=== PATIENT | female | born 1970 | race Caucasian/White ===

== ENCOUNTER 2016-10-20 22:10 | Emergency (ER) | payer OTHER ==
[2016-10-21 03:44] LABS: APPEARANCE,URINE CLEAR; BILIRUBIN,URINE NEGATIVE (NEGATIVE); GLUCOSE, URINE NEGATIVE (NEGATIVE); KETONES,URINE NEGATIVE (NEGATIVE); LEUKOCYTE ESTERASE,URINE SMALL (NEGATIVE); NITRITE,URINE NEGATIVE (NEGATIVE); PROTEIN,URINE NEGATIVE (NEGATIVE); URINE SPECIFIC GRAVITY 1.003; UROBILINOGEN,URINE NEGATIVE mg/dL (<2.0)
[2016-10-21] MEDS ORDERED: CEPHALEXIN 500 MG CAPSULE PO ONE (04:55)
[2016-10-21] MEDS ORDERED: PHENAZOPYRIDINE HCL 200 MG TABLET PO ONE (04:55)
--- NOTE | 2016-10-21 04:58 | ER Document Report ---
HPI - HPI Patient complains to provider of: urinary frequency, burning with urination Pain Level: 4 Context: Patient is a 46-year-old female that comes emergency department for chief complaint of new onset today of painful urination, burning with urination, and urinary frequency. Patient states that since she arrived to the emergency department and after she gave sample she started having mild discomfort in her bladder area and she noticed blood in her urine. She states she gets about 4 urinary tract infections a year. She denies vaginal discharge or bleeding. She denies fever, nausea or vomiting, flank pain. She denies any daily medications. - URINARY Urinary: REPORTS: Dysuria, Urgency, Frequency - MUSCULOSKELETAL Musculoskeletal: DENIES: Extremity pain, Back Pain, Neck Pain, Swelling - DERM Skin Color: Normal Skin Problems: None Past Medical History - General Information source: Patient - Social History Smoking Status: Never Smoker Drug Abuse: None Lives with: Spouse/Significant other Family History: Reviewed & Not Pertinent - Medical History Medical History: Negative Renal/ Medical History: Denies: Hx Peritoneal Dialysis Past Surgical History: Reports: Hx Hysterectomy - Immunizations Immunizations up to date: Yes Hx Diphtheria, Pertussis, Tetanus Vaccination: Yes Vertical Provider Document - CONSTITUTIONAL General Appearance: WD/WN, No Apparent Distress - INFECTION CONTROL TRAVEL OUTSIDE OF THE [place] IN LAST 30 DAYS: No - HEENT HEENT: Atraumatic, Normocephalic - NECK Neck: Normal Inspection - RESPIRATORY Respiratory: Breath Sounds Normal, No Respiratory Distress - CARDIOVASCULAR Cardiovascular: Regular Rate, Regular Rhythm - GI/ABDOMEN Gastrointestinal: Abdomen Soft. negative: Abdomen Non-Tender - Very mild suprapubic tenderness, otherwise unremarkable Course - Laboratory Laboratory results interpreted by me: 10/20/16 22:15 Urine Blood MODERATE H Ur Leukocyte Esterase SMALL H Discharge - Discharge Clinical Impression: Dysuria Condition: Stable Disposition: HOME, SELF-CARE Additional Instructions: Take the Keflex antibiotic as directed for the urinary tract infection. Follow-up with primary care for additional management. Return to the emergency department for any concerning or worsening symptoms including vomiting, abdominal or flank pain, fever, etc. Prescriptions: Cephalexin Monohydrate [Keflex 500 mg Capsule] 500 mg PO BID #10 capsule
[2016-10-21 05:34] VITALS: BP 122/88
== END 2016-10-21 05:33 | disposition home or self-care (01) ==
LOC: ER 22:10
DX: R30.0 Dysuria (principal); R35.0 Frequency of micturition
CPT/HCPCS: 99283; 81025; 81001; J3490

== ENCOUNTER 2017-09-20 20:23 | Emergency (ER) | payer OTHER ==
[2017-09-20 20:41] VITALS: BP 118/74
[2017-09-20] MEDS ORDERED: ACETAMINOPHEN 325 MG TABLET PO ONE (21:05)
--- NOTE | 2017-09-20 21:26 | RADIOLOGY REPORT (SQ) ---
EXAM DESCRIPTION: FOOT RIGHT COMPLETE COMPLETED DATE/TIME: 09/20/2017 9:00 pm REASON FOR STUDY: injury/swelling COMPARISON: None. NUMBER OF VIEWS: Three views. TECHNIQUE: AP, lateral and oblique radiographic images acquired of the right foot. LIMITATIONS: None. FINDINGS: MINERALIZATION: Normal. BONES: There is a fracture of the distal diaphysis of the 5th proximal phalanx with angulation. JOINTS: No effusions. SOFT TISSUES: No soft tissue swelling. No foreign body. OTHER: No other significant finding. IMPRESSION: Fracture of the 5th proximal phalanx. TECHNICAL DOCUMENTATION: JOB ID: [id number] [employer]- All Rights Reserved Reading location - IP/workstation name: [email or web address]
[2017-09-20] MEDS ORDERED: OXYCODONE HCL IR 5 MG TABLET PO ONE (21:52)
--- NOTE | 2017-09-20 21:58 | ER Document Report ---
ED Extremity Problem, Lower - General Chief Complaint: Toe Injury Stated Complaint: TOE INJURY Time Seen by Provider: 09/20/17 21:12 Mode of Arrival: Ambulatory Information source: Patient TRAVEL OUTSIDE OF THE [place] IN LAST 30 DAYS: No - HPI Patient complains to provider of: Injury Location: 5th Toe Occurred: Just prior to arrival Where: Home Notes: Patient is here with complaints of right fifth toe injury. She was walking when she excellently stubbed her toe on a coffee table. She states that the toe is now planing laterally. She denies any other injuries. Pain is worse with movement or walking. Better with rest and staying off of it. No redness or fever. No nausea, vomiting, diarrhea. No numbness, tingling, weakness. No other complaints. - Related Data Allergies/Adverse Reactions: No Known Allergies Allergy (Unverified 10/21/16 03:57) Past Medical History - Social History Smoking Status: Unknown if Ever Smoked Family History: Reviewed & Not Pertinent Patient has suicidal ideation: No Patient has homicidal ideation: No Renal/ Medical History: Denies: Hx Peritoneal Dialysis Past Surgical History: Reports: Hx Hysterectomy - Immunizations Immunizations up to date: Yes Hx Diphtheria, Pertussis, Tetanus Vaccination: Yes Review of Systems - Review of Systems -: Yes All other systems reviewed and negative Physical Exam - Vital signs Vitals: Temp Pulse Resp BP Pulse Ox 98.0 F 77 18 118/74 97 09/20/17 20:40 09/20/17 20:40 09/20/17 20:40 09/20/17 20:40 09/20/17 20:40 - Notes Notes: GENERAL: alert, cooperative, nontoxic, no distress. HEAD: normocephalic, atraumatic EYES: conjunctiva pink without discharge, no external redness or swelling. EARS: no external swelling, no external redness NOSE: atraumatic, no external swelling MOUTH/THROAT: mucous membranes moist and pink NECK: soft, supple, full range of motion, no meningismus. CHEST: no distress, lungs clear and equal throughout. No wheezing, rales, rhonchi. CARDIAC: regular rate and rhythm, no murmur, normal capillary refill, normal pulses. BACK: full range of motion, no CVA tenderness. EXTREMITIES: Obvious lateral deformity of the right fifth toe. No redness. Skin is intact. Normal cap refill and sensation distally. Limited range of motion. NEURO: alert and oriented 3, no focal deficits, full range of motion of all extremities. PYSCH: appropriate mood, affect. Patient is cooperative. SKIN: pink, warm, dry, no rash. Course - Re-evaluation Re-evalutation: 09/20/17 22:28 Patient is nontoxic appearing with stable vitals. The patient stubbed her right fifth toe on a coffee table and had an obvious deformity. X-ray shows a fracture of the proximal phalanx. Was able to reduce this and colleen tape the toe together. Repeat x-ray shows successful reduction. The patient will be placed in a postop shoe and given crutches. I will write her a prescription for [place] to take as needed for pain. Follow-up with orthopedics at the next available appointment to determine if any further interventions are required. Follow-up sooner for increasing pain, fever, redness, numbness, tingling, weakness, any further concerns. The patient's emergency department workup and current diagnosis were explained to the patient and or family. Follow-up instructions were provided. Medications if prescribed were discussed. Instructions for when to return to the emergency department including specific worrisome symptoms were discussed with the patient and/or family. - Vital Signs Vital signs: Temp Pulse Resp BP Pulse Ox 98.0 F 77 18 118/74 97 09/20/17 20:40 09/20/17 20:40 09/20/17 20:40 09/20/17 20:40 09/20/17 20:40 - Diagnostic Test Radiology reviewed: Image reviewed, Reports reviewed - Fracture of the fifth proximal phalanx Procedures - Immobilization Right foot Pre-Proc Neuro Vasc Exam: Normal Immobilizer type: Post-op shoe Performed by: RN Post-Proc Neuro Vasc Exam: Normal Alignment checked and good: Yes - Joint Reduction/Fracture Care Right fifth toe Consent obtained: Yes Pre-procedure NV exam: Yes Fracture: Closed Manipulation comment: Toe was pulled out and into appropriate position. Gauze was placed between Post-procedure NV exam: Yes Post-reduction x-ray: Joint reduced Reduction attempts: 1 Discharge - Discharge Clinical Impression: Fracture of fifth toe, right, closed Qualifiers: Encounter type: initial encounter Qualified Code(s): S92.501A - Displaced unspecified fracture of right lesser toe(s), initial encounter for closed fracture Condition: Stable Disposition: HOME, SELF-CARE Instructions: Colleen Taping (toes) ([facility]), Fractured Toe ([facility]) Additional Instructions: Take medications as prescribed. Keep your toe colleen taped at all times. Wear postop shoe and use crutches as needed. Rest, ice, elevate. Follow-up with orthopedics at the next available appointment. Follow-up sooner for increasing pain, fever, redness, numbness, tingling, weakness, any further concerns. The medication you were prescribed today may cause drowsiness. Do not drive or operate heavy machinery while taking this medication. Prescriptions: Hydrocodone/Acetaminophen [[place] 5-325 mg Tablet] 2 tab PO Q6H PRN #15 tab PRN Reason: Forms: Smoking Cessation Education Referrals: SABINE KOLB PA [Primary Care Provider] - Follow up as needed WYATT HERR DO [ACTIVE STAFF] - Follow up as needed
--- NOTE | 2017-09-20 22:21 | RADIOLOGY REPORT (SQ) ---
EXAM DESCRIPTION: TOE RIGHT COMPLETED DATE/TIME: 09/20/2017 10:11 pm REASON FOR STUDY: post reduction COMPARISON: 09/20/2017 NUMBER OF VIEWS: Three views. TECHNIQUE: AP and lateral images acquired of the right fifth toe. LIMITATIONS: None. FINDINGS: MINERALIZATION: Normal. BONES: Once again there is a fracture of the distal diaphysis of the 5th proximal phalanx. The align ment appears to be satisfactory at this time. JOINTS: No effusions. SOFT TISSUES: No soft tissue swelling. No foreign body. OTHER: No other significant finding. IMPRESSION: Successful reduction. COMMENT: SITE OF TRAUMA/COMPLAINT MARKED/STAMP COMPLETED: YES. TECHNICAL DOCUMENTATION: JOB ID: [id number] [employer]- All Rights Reserved Reading location - IP/workstation name: [email or web address]
== END 2017-09-20 22:53 | disposition home or self-care (01) ==
LOC: ER 20:23
PROC: 0QSQXZZ Reposition Right Toe Phalanx, External Approach (ICD-10-PCS; principal; 2017-09-20)
DX: S92.511A Displaced fracture of proximal phalanx of right lesser toe(s), initial encounter for closed fracture (principal); W22.03XA Walked into furniture, initial encounter; Y92.009 Unspecified place in unspecified non-institutional (private) residence as the place of occurrence of the external cause; Z90.710 Acquired absence of both cervix and uterus
CPT/HCPCS: 99283

== ENCOUNTER 2020-05-31 16:30 | Emergency (ER) | payer OTHER ==
[2020-05-31] MEDS ORDERED: ONDANSETRON HCL INJ/PF 4 MG/2 ML SDV IV ONE (17:10)
[2020-05-31] MEDS ORDERED: NORMAL SALINE 1000 ML 1,000 ML IV ONE (17:10)
[2020-05-31] MEDS ORDERED: DIPHENHYDRAMINE HCL 50 MG/ML VIAL IV ONE (17:10)
--- NOTE | 2020-05-31 17:11 | ER Document Report ---
ED GI/ - General Chief Complaint: Vomiting Stated Complaint: NAUSEA,VOMITING,FEVER,HEADACHE Time Seen by Provider: 05/31/20 16:58 Notes: Patient is a 50-year-old female no past medical history presents the emergency department with nausea, vomiting, and diarrhea, and headache. 4 days ago, the patient tested positive for COVID-19. She had a slight cough then, but has not had a cough since. Patient states that she does not feel well. TRAVEL OUTSIDE OF THE [place] IN LAST 30 DAYS: No - Related Data Allergies/Adverse Reactions: No Known Allergies Allergy (Verified 05/31/20 18:09) Past Medical History - General Information source: Patient - Social History Smoking Status: Unknown if Ever Smoked Family History: Reviewed & Not Pertinent Renal/ Medical History: Denies: Hx Peritoneal Dialysis Past Surgical History: Reports: Hx Hysterectomy - Immunizations Immunizations up to date: Yes Hx Diphtheria, Pertussis, Tetanus Vaccination: Yes Review of Systems - Review of Systems Notes: REVIEW OF SYSTEMS: CONSTITUTIONAL : Denies recent illness. Denies recent unintentional weight loss. Denies fever, chills, or sweats. EENT: Denies eye, ear, throat, or mouth pain, discharge, or symptoms. Denies nasal or sinus congestion. CARDIOVASCULAR: Denies chest pain. RESPIRATORY: See HPI. GASTROINTESTINAL: See HPI. GENITOURINARY: Denies difficulty urinating, burning, blood in urine, urgency or frequency. MUSCULOSKELETAL: Denies neck and back pain. Denies joint pain or swelling. SKIN: Denies rash, itchiness, or lesions HEMATOLOGIC : Denies easy bruising or bleeding. LYMPHATIC: Denies swollen, painful, enlarged glands. NEUROLOGICAL: Denies no numbness or tingling denies weakness. Denies headache. Denies altered mental status. Denies alteration in speech. PSYCHIATRIC: Denies stress, anxiety, alteration in sleep patterns, or depression. All other systems reviewed and negative. Physical Exam - Vital signs Vitals: Temp Pulse Resp BP Pulse Ox 98.5 F 87 20 123/92 H 98 05/31/20 16:56 05/31/20 16:56 05/31/20 16:56 05/31/20 16:56 05/31/20 16:56 - Notes Notes: PHYSICAL EXAMINATION: GENERAL: Appears well, healthy, well-nourished, no acute distress. HEAD: Normocephalic, atraumatic. EYES: PERRL, conjunctiva normal, all extraocular movements intact, sclera nonicteric ENT: Moist mucous membranes. NECK: Supple, no noticeable swelling, redness, rash. Normal range of motion. LUNGS: Equal breath sounds bilaterally and clear to auscultation. No wheezes rales or rhonchi. CARDIOVASCULAR: S1-S2, regular rate, regular rhythm. Radial pulses 2+, normal. ABDOMEN: Normoactive bowel sounds. Soft, nontender, no guarding, no rebound tenderness, and no masses palpated. EXTREMITIES: Normal strength and range of motion, no pitting or edema. No cyanosis. NEUROLOGICAL: Moves all extremities upon command. Strength 5/5 in all extremities. PSYCH: Normal mood, normal affect. SKIN: Warm, dry. No rash, lesions, ulcerations noted. Normal skin turgor. Course - Re-evaluation Re-evalutation: 05/31/20 20:13 patient reports that she feels better after receiving Phenergan and Tylenol, will send the patient home with Phenergan. Advised her to continue quarantine. She is in agreement with this plan. Labs are essentially unremarkable. Follow- up precautions were given. Verbal discharge instructions were given to the patient. They verbalized understanding. They are stable for discharge. 05/31/20 20:14 - Vital Signs Vital signs: Temp Pulse Resp BP Pulse Ox 101.6 F H 88 22 H 151/97 H 95 05/31/20 20:23 05/31/20 19:30 05/31/20 19:30 05/31/20 19:30 05/31/20 19:30 - Laboratory Result Diagrams: 05/31/20 17:15 05/31/20 17:15 Laboratory results interpreted by me: 05/31/20 05/31/20 17:15 17:15 Seg Neutrophils % 79.7 H Sodium 135.7 L Glucose 118 H AST 38 H Discharge - Discharge Clinical Impression: Nausea vomiting and diarrhea, COVID-19 Condition: Stable Disposition: HOME, SELF-CARE Additional Instructions: You were seen today in the emergency department for nausea, vomiting, and diarrhea from COVID-19. Please continue quarantine. Take Phenergan as needed. Prescriptions: Promethazine HCl [Phenergan 25 mg Tablet] 1 - 2 tab PO Q6H PRN #20 tablet PRN Reason: Promethazine HCl [Phenergan 25 mg Tablet] 1 - 2 tab PO Q6H PRN #20 tablet PRN Reason:
[2020-05-31 17:40] LABS: ABSOLUTE MONOCYTES (AUTO) 0.4 10^3/uL (0.1-1.4); ABSOLUTE NEUT (AUTO) 5.5 10^3/uL (1.7-8.2); BASOPHILS % (AUTO) 0.4 % (0-2); EOSINOPHILS % (AUTO) 0.1 % (0-6); HEMATOCRIT 40.7 % (36.0-47.0); HEMOGLOBIN 13.9 g/dL (12.0-15.5); LYMPHOCYTES % (AUTO) 13.9 % (13-45); MEAN CORPUSCULAR HEMOGLOBIN 29.3 pg (27.0-33.4); MEAN CORPUSCULAR HGB CONC 34.1 g/dL (32.0-36.0); MEAN CORPUSCULAR VOLUME 86 fl (80-97); MONOCYTES % (AUTO) 5.9 % (3-13); PLATELET COUNT 212 10^3/uL (150-450); RED BLOOD COUNT 4.74 10^6/uL (3.72-5.28); RED CELL DISTRIBUTION WIDTH 13.8 % (11.5-14.0); SEGMENTED NEUTROPHILS % (AUTO) 79.7 % (42-78); TOTAL CELLS COUNTED % (AUTO) 100 %; WHITE BLOOD COUNT 6.9 10^3/uL (4.0-10.5)
[2020-05-31 17:58] LABS: ALBUMIN 3.8 g/dL (3.5-5.0); ALKALINE PHOSPHATASE 60 U/L (38-126); ANION GAP 7 (5-19); ASPARTATE AMINO TRANSFERASE 38 U/L (14-36); BILIRUBIN,DIRECT 0.1 mg/dL (0.0-0.4); BILIRUBIN,TOTAL 0.5 mg/dL (0.2-1.3); BLOOD UREA NITROGEN 11 mg/dL (7-20); CALCIUM 8.6 mg/dL (8.4-10.2); CARBON DIOXIDE 29 mmol/L (22-30); CHLORIDE 100 mmol/L (98-107); GLUCOSE 118 mg/dL (75-110); POTASSIUM 3.6 mmol/L (3.6-5.0)
[2020-05-31] MEDS ORDERED: ACETAMINOPHEN 325 MG TABLET PO ONE ×2 (18:36→19:24)
[2020-05-31] MEDS ORDERED: PROMETHAZINE HCL INJ 25 MG/1 ML VIAL IV ONE (19:24)
[2020-05-31 19:53] VITALS: BP 151/97
== END 2020-05-31 20:23 | disposition home or self-care (01) ==
LOC: ER 16:30
DX: U07.1 COVID-19 (principal); R11.2 Nausea with vomiting, unspecified; R19.7 Diarrhea, unspecified; R51.9 Headache, unspecified
CPT/HCPCS: 99284; 96361; 96374; 96375; 36415; 85025; 80053; J1200; J2550; J2405; J7030